=== PATIENT | female | born 1955 | race Caucasian/White ===

== ENCOUNTER 2022-04-27 08:21 | Emergency (ER) | payer MEDICARE ==
[2022-04-27] MEDS ORDERED: Albuterol 8 GM Inhaler INH STA (09:07)
[2022-04-27] MEDS ORDERED: Sodium Chloride 0.9% 20 ML SDV IV PRN (10:24)
[2022-04-27] MEDS ORDERED: Sodium Chloride 0.9% 10 ML Syringe FLUSH PRN (10:24)
[2022-04-27] MEDS ORDERED: Sodium Chloride 0.9% 2.5 ML Syringe FLUSH PRN (10:24)
[2022-04-27] MEDS ORDERED: Sodium Chloride 0.9% 1,000 ML IV ONE (10:25)
[2022-04-27 11:35] LABS: CARBON DIOXIDE,CO2 22.7 mmol/L (21.0-32.0); POTASSIUM,K 3.6 mmol/L (3.5-5.1)
[2022-04-27] MEDS ORDERED: Iopamidol 755 MG/ML 500 ML Multipack Bottle IVPUSH STA (12:07)
[2022-04-27] MEDS ORDERED: cefTRIAXone 1 GM in Sodium Chloride 0.9% 50 ML IV ONE (13:46)
[2022-04-27] MEDS ORDERED: Dexamethasone 10 MG/ML SDV IVPUSH ONE (13:46)
[2022-04-27] MEDS ORDERED: Racepinephrine 2.25% 0.5 ML Neb Soln NEB ONE (15:24)
== END 2022-04-27 15:31 ==
LOC: MW.ED 08:21
DX: J03.90 Acute tonsillitis, unspecified (principal); R60.0 Localized edema; Z88.5 Allergy status to narcotic agent; Z88.8 Allergy status to other drugs, medicaments and biological substances; Z79.899 Other long term (current) drug therapy; Z20.822 Contact with and (suspected) exposure to COVID-19
CPT/HCPCS: 36415; 70487; 70491; 71045; 80048; 85025; 87651; 96361; 96365; 96375; 99285; A9270; J0696; J1100; J3490; J7030; Q9967; U0002; 99284